=== PATIENT | female | born 1995 | race Caucasian/White ===

== ENCOUNTER → 2019-09-14 | Outpatient (CLI) | payer SELFPAY ==
--- NOTE | 2019-09-14 15:50 | RADIOLOGY REPORT (SQ) ---
EXAM DESCRIPTION: U/S OB 14+ TRNABD 1GES W/O DOP COMPLETED DATE/TIME: 09/14/2019 1:33 pm REASON FOR STUDY: Z34.02 ENCNTR FOR SUPRVSN OF NORMAL FIRST PREG, SECOND TRIMESTER Z34.02 ENCNTR FO R SUPRVSN OF NORMAL FIRST PREG, SECOND TRIME COMPARISON: None. TECHNIQUE: Static and Dynamic grayscale imaging performed of gravid uterus using transabdominal appr oach. Additional selected color Doppler and spectral images recorded. All stored on PACS. LIMITATIONS: None. FINDINGS: FETUSES SEEN:1 EGA: 14 weeks 5 days Calculated using BPD,FL,HC,AC documented on images. Discrepancy with clinical d ates. Exceeds clinical dates by 1 week 2 days. ALPHONSO: 03/18/2020 EFW: Not calculated. Grams PERCENTILE: Not applicable. Fetus less than or equal to 20 weeks gestation. LVP: 6.7 x 4.6 cm. PLACENTA: Fundal GRADE: I PRESENTATION: Variable. ANATOMY: Complete anatomical survey was not performed because of the gestational age. HEART RATE: 149 beats per minute. MATERNAL ADNEXA: Maternal ovaries not visualized. CERVICAL LENGTH: 3.2 cm. Closed. OTHER: No other significant finding. IMPRESSION: LIVING INTRAUTERINE . ESTIMATED GESTATIONAL AGE 14 weeks 5 days Anatomical survey was not performed. Trimester of : Second trimester - 13 weeks 1 day to 27 weeks 6 days. TECHNICAL DOCUMENTATION: JOB ID: [id number] 2010 [employer]- All Rights Reserved Reading location - IP/workstation name: [email or web address]
== END ==
LOC: RAD 12:54
PROVIDERS: ATTEND Nurse Practitioner Family
DX: Z34.02 Encounter for supervision of normal first pregnancy, second trimester (principal)
CPT/HCPCS: 76805

== ENCOUNTER → 2019-10-20 | Outpatient (CLI) | payer SELFPAY ==
--- NOTE | 2019-10-20 14:30 | RADIOLOGY REPORT (SQ) ---
EXAM DESCRIPTION: U/S OB 14+ TRNABD 1GES W/O DOP IMAGES COMPLETED DATE/TIME: 10/20/2019 1:53 pm REASON FOR STUDY: Z34.02 ENCNTR FOR SUPRVSN OF NORMAL FIRST PREG, SECOND TRIMESTER Z34.02 ENCNTR FO R SUPRVSN OF NORMAL FIRST PREG, SECOND TRIME COMPARISON: 09/14/2019 TECHNIQUE: Static and Dynamic grayscale imaging performed of gravid uterus using transabdominal appr oach. Additional selected color Doppler and spectral images recorded. All stored on PACS. LIMITATIONS: None. FINDINGS: FETUSES SEEN:1 EGA: 19 weeks 5 days Calculated using BPD,FL,HC,AC documented on images. No discrepancy with clinica l dates. ALPHONSO: 03/10/2020 EFW: 304 grams PERCENTILE: Not applicable. Fetus less than or equal to 20 weeks gestation. LVP: 6.0 x 9.9 cm PLACENTA: Posterior PRESENTATION: Vertex ANATOMY: HEART RATE: 153 beats per minute. FOUR CHAMBER HEART: Visualized. THREE VESSEL CORD: Yes. CORD INSERTION: Visualized. KIDNEYS AND BLADDER: Visualized. Appear normal. STOMACH: Visualized. Appears normal. SPINE: Normal as visualized. BRAIN AND LATERAL VENTRICLES: Visualized. Appear normal. OTHER: No other significant finding. MATERNAL ADNEXA: Maternal ovaries not visualized. CERVICAL LENGTH: 2.8 cm Closed. OTHER: No other significant finding. IMPRESSION: LIVING INTRAUTERINE . ESTIMATED GESTATIONAL AGE 19 weeks 5 days NO VISUALIZED ANOMALIES. Trimester of : Second trimester - 13 weeks 1 day to 27 weeks 6 days. TECHNICAL DOCUMENTATION: JOB ID: [id number] 2010 [employer]- All Rights Reserved Reading location - IP/workstation name: [email or web address]
== END ==
LOC: RAD 12:46
PROVIDERS: ATTEND Nurse Practitioner Family
DX: Z34.02 Encounter for supervision of normal first pregnancy, second trimester (principal); Z3A.19 19 weeks gestation of pregnancy
CPT/HCPCS: 76805

== ENCOUNTER 2020-03-17 19:46 | Inpatient (IN) | payer MEDICAID ==
[2020-03-17] MEDS ORDERED: RINGERS SOLUTION,LACTATED 1,000 ML IV PRN ×2 (20:21)
[2020-03-17] MEDS ORDERED: RINGERS SOLUTION,LACTATED 1,000 ML IV ONE (20:21)
[2020-03-17] MEDS ORDERED: MAG HYDROX/AL HYDROX/SIMETH SUSP 30 ML UDCUP PO PRN (20:21)
[2020-03-17] MEDS ORDERED: ACETAMINOPHEN 325 MG TABLET PO PRN (20:21)
[2020-03-17] MEDS ORDERED: ZOLPIDEM TARTRATE 5 MG TABLET PO PRN (20:21)
[2020-03-17] MEDS ORDERED: RINGERS SOLUTION,LACTATED 300 ML IV ONE (20:21)
[2020-03-17] MEDS ORDERED: OXYTOCIN/0.9 % SODIUM CHLORIDE 30 UNIT/500 ML RTUINJ IV PRN (20:21)
[2020-03-17] MEDS ORDERED: DINOPROSTONE 10 MG VAGINAL INSERT.SR PV ONE (20:21)
[2020-03-17 20:37] LABS: ABSOLUTE BASOPHILS # (AUTO) 0.1 10^3/uL (0.0-0.2); ABSOLUTE EOSINOPHILS # (AUTO) 0.3 10^3/uL (0.0-0.6); ABSOLUTE LYMPHOCYTES (AUTO) 1.8 10^3/uL (0.5-4.7); ABSOLUTE MONOCYTES (AUTO) 0.9 10^3/uL (0.1-1.4); BASOPHILS % (AUTO) 0.6 % (0-2); EOSINOPHILS % (AUTO) 2.3 % (0-6); HEMATOCRIT 35.8 % (36.0-47.0); HEMOGLOBIN 12.4 g/dL (12.0-15.5); LYMPHOCYTES % (AUTO) 13.9 % (13-45); MEAN CORPUSCULAR HEMOGLOBIN 32.2 pg (27.0-33.4); MEAN CORPUSCULAR HGB CONC 34.6 g/dL (32.0-36.0); MEAN CORPUSCULAR VOLUME 93 fl (80-97); MONOCYTES % (AUTO) 7.2 % (3-13); PLATELET COUNT 215 10^3/uL (150-450); RED BLOOD COUNT 3.84 10^6/uL (3.72-5.28); RED CELL DISTRIBUTION WIDTH 13.4 % (11.5-14.0); TOTAL CELLS COUNTED % (AUTO) 100 %; WHITE BLOOD COUNT 13.1 10^3/uL (4.0-10.5)
--- NOTE | 2020-03-17 20:42 | Admission Physical ---
Datetime Report Generated by CPN: 03/17/2020 20:42 CURRENT ADMISSION Chief Complaint: Scheduled Induction of Labor Indication for Induction: Post Dates Admit Impression : Term, Intrauterine Admit Plan: Admit to Unit PHYSICAL EXAM General: Normal HEENT: Normal Neurologic: Normal Thyroid: Normal Heart: Normal Lungs: Normal Breast: Deferred Back: Normal Abdomen: Normal Genitourinary Exam: Normal Extremities: Normal DTRs: Normal Pelvic Type: Adequate FETUS A Monitoring: External US FHR- Baseline: 120 Variability: Moderate 6-25bpm Decelerations: None FHR Category: Category I Estimated Weight (gm): 4441 Presentation: Vertex Admit Comment: Discussed risks of delivering a large baby including risk of shoulder dystocia and injury. INFORMED CONSENT Signature: with User ID: [email or web address]
[2020-03-17 20:56] LABS: URINE AMPHETAMINES SCREEN NEGATIVE; URINE BARBITURATES SCREEN NEGATIVE; URINE BENZODIAZEPINES SCREEN NEGATIVE; URINE COCAINE SCREEN NEGATIVE; URINE METHADONE SCREEN NEGATIVE; URINE PHENCYCLIDINE SCREEN NEGATIVE
[2020-03-17 20:59] LABS: URINE MARIJUANA (THC) SCREEN UNCONFIRMED POSITIVE
[2020-03-17] MEDS ORDERED: MISOPROSTOL 0.2 MG TABLET ONE (21:11)
[2020-03-17] MEDS ORDERED: OXYTOCIN 10 UNIT/ML VIAL ONE (21:11)
[2020-03-17] MEDS ORDERED: ZOLPIDEM TARTRATE 5 MG TABLET ONE (21:12)
[2020-03-17] MEDS ORDERED: OXYTOCIN/0.9 % SODIUM CHLORIDE 30 UNIT/500 ML RTUINJ ONE (21:12)
[2020-03-17] MEDS ORDERED: LIDOCAINE 1% INJ-PF (10 MG/ML) 30 ML SDV ONE (21:12)
[2020-03-17] MEDS ORDERED: DINOPROSTONE 10 MG VAGINAL INSERT.SR ONE (21:12)
[2020-03-17] MEDS ORDERED: ZOLPIDEM TARTRATE 5 MG TABLET PO ONE (21:16)
[2020-03-18] MEDS ORDERED: NALBUPHINE HCL INJ 10 MG/1 ML AMPULE INJ ONE (08:10)
[2020-03-18] MEDS ORDERED: NALBUPHINE HCL INJ 10 MG/1 ML AMPULE ONE (08:10)
[2020-03-18] MEDS ORDERED: PROMETHAZINE HCL INJ 25 MG/1 ML VIAL IV ONE (08:10)
[2020-03-18] MEDS ORDERED: PROMETHAZINE HCL INJ 25 MG/1 ML VIAL ONE (08:10)
--- NOTE | 2020-03-18 08:24 | L&D Progress Notes ---
PROGRESS NOTES Datetime Report Generated by CPN: 03/18/2020 08:24 PROGRESS NOTE Impression: Reassuring Heart Rate Plan: Continue Present Management; Induction Vital Signs : Reviewed Comment: Assuming care of pt. IOL at 41.2 weeks w/ cervidil placed last night, pt becoming uncomfortable, will give IV pain medication this am. Cervidil to be removed at 0900, then plan AROM with cervical change and plan to start Pitocin to continue w/ IOL. Attending MD today is Dr Mendoza. MEMBRANES Membranes: Intact FETUS A FHR - Baseline: 140 Monitoring: External US Variability: Moderate 6-25bpm Accelerations: 15X15 Decelerations: None FHR Category: Category I : 41.0 Estimated Weight (gm): 4441 Presentation: Vertex SIGNATURE SIGNATURE: [id number];[id number] Assignment: Meri Mendoza MD Signature: with User ID: [email or web address] : with User ID: [email or web address]
[2020-03-18] MEDS ORDERED: FENTANYL/BUPIVACAINE/NS/PF 300 MCG/150 ML RTUINJ EPI ONE (09:48)
[2020-03-18] MEDS ORDERED: ROPIVACAINE HCL 0.2% INJ/PF (2 MG/ML) 20 ML SDV ONE (09:48)
[2020-03-18] MEDS ORDERED: EPHEDRINE SULFATE INJ 50 MG/1 ML AMPULE ONE (09:48)
[2020-03-18] MEDS ORDERED: ONDANSETRON HCL INJ/PF 4 MG/2 ML SDV IV ONE (10:05)
[2020-03-18] MEDS ORDERED: ONDANSETRON HCL INJ/PF 4 MG/2 ML SDV ONE (10:05)
--- NOTE | 2020-03-18 11:22 | L&D Progress Notes ---
PROGRESS NOTES Datetime Report Generated by CPN: 03/18/2020 11:22 PROGRESS NOTE Impression: Reassuring Heart Rate Procedures: Sterile Vag Exam Plan: Continue Present Management; Induction Vital Signs : Reviewed; Within Normal Limits Comment: Epidural in place, pt is comfortable, pitocin has not been started due to contractions q 1-2 min. VE 4/80/-1 w/ BBOW. By request of RN, she wants to try position changes in attempt to get baby to rotate from OP. Will plan to AROM in one hour after position changes. LAST VAGINAL EXAM-NURSING Nursing Exam Dilitation: 4.0 Nursing Exam Effacement: 80 Nursing Exam Station: -1 MEMBRANES Membranes: Bulging FETUS A FHR - Baseline: 145 Monitoring: External US Variability: Marked >25bpm Accelerations: 15X15 Decelerations: None FHR Category: Category I : 41.0 Estimated Weight (gm): 4441 Presentation: Vertex SIGNATURE SIGNATURE: [id number];[id number] Assignment: Meri Mendoza MD Signature: with User ID: [email or web address] : with User ID: [email or web address]
[2020-03-18] MEDS ORDERED: MAG HYDROX/AL HYDROX/SIMETH SUSP 30 ML UDCUP PO PRN (15:27)
[2020-03-18] MEDS ORDERED: MAG HYDROX/AL HYDROX/SIMETH SUSP 30 ML UDCUP ONE (15:31)
--- NOTE | 2020-03-18 15:34 | L&D Progress Notes ---
PROGRESS NOTES Datetime Report Generated by CPN: 03/18/2020 15:33 PROGRESS NOTE Impression: Normal Progression of Labor; Reassuring Heart Rate Procedures: Sterile Vag Exam Plan: Continue Present Management; Induction Vital Signs : Reviewed; Within Normal Limits Comment: Epidural in place, pt is now uncomfortable. VE 8/100/0. Pitocin infusing. Position changes encouraged. Anticipate LAST VAGINAL EXAM-NURSING Nursing Exam Dilitation: 8.0 Nursing Exam Effacement: 100 Nursing Exam Station: 0 MEMBRANES Membranes: Ruptured Amniotic Fluid Color: Meconium, Heavy FETUS A FHR - Baseline: 135 Monitoring: External US Variability: Moderate 6-25bpm Accelerations: 15X15 Decelerations: None FHR Category: Category I : 41.0 Estimated Weight (gm): 4441 Presentation: Vertex SIGNATURE SIGNATURE: [id number];[id number] Assignment: Meri Mendoza MD Signature: with User ID: [email or web address] : with User ID: [email or web address]
--- NOTE | 2020-03-18 17:31 | L&D Progress Notes ---
PROGRESS NOTES Datetime Report Generated by CPN: 03/18/2020 17:31 PROGRESS NOTE Impression: Normal Progression of Labor Procedures: Sterile Vag Exam Plan: Anticipate Vaginal Delivery Vital Signs : Reviewed; Within Normal Limits Comment: Pt w/ increased pain/ pressure. VE C/+2 station. Will have RN start pushing w/ patient. Dr Mendoza notified. Anticipate LAST VAGINAL EXAM-NURSING Nursing Exam Dilitation: 8.0 Nursing Exam Effacement: 100 Nursing Exam Station: 0 MEMBRANES Membranes: Ruptured Amniotic Fluid Color: Meconium, Heavy FETUS A FHR - Baseline: 140 Monitoring: External US Variability: Moderate 6-25bpm Accelerations: 15X15 Decelerations: None FHR Category: Category I : 41.0 Estimated Weight (gm): 4441 Presentation: Vertex SIGNATURE SIGNATURE: [id number];10,[id number] Assignment: Meri Mendoza MD Signature: with User ID: [email or web address] : with User ID: [email or web address]
[2020-03-18] MEDS ORDERED: PROMETHAZINE HCL INJ 25 MG/1 ML VIAL IV PRN (18:13)
[2020-03-18] MEDS ORDERED: DIBUCAINE 1% OINTMENT 28 GM TP PRN (18:13)
[2020-03-18] MEDS ORDERED: NA PHOS,M-B/NA PHOS,DI-BA (ADULT) 133 ML ENEMA PR PRN (18:13)
[2020-03-18] MEDS ORDERED: OXYTOCIN/0.9 % SODIUM CHLORIDE 30 UNIT/500 ML RTUINJ IV PRN (18:13)
[2020-03-18] MEDS ORDERED: DIPH/PERTUSS(ACELL)/TETANUS VAC/PF 0.5 ML SYR (>=10YO) IM PRN (18:13)
[2020-03-18] MEDS ORDERED: PROMETHAZINE HCL 25 MG SUPP.RECT PR PRN (18:13)
[2020-03-18] MEDS ORDERED: PROMETHAZINE HCL 25 MG TABLET PO PRN (18:13)
[2020-03-18] MEDS ORDERED: DIPHENHYDRAMINE HCL 25 MG CAPSULE PO PRN (18:13)
[2020-03-18] MEDS ORDERED: ACETAMINOPHEN 650 MG SUPP.RECT PR PRN (18:13)
[2020-03-18] MEDS ORDERED: GLYCERIN/WITCH HAZEL LEAF 1 EACH MED..WIPE TP PRN (18:13)
[2020-03-18] MEDS ORDERED: MAGNESIUM HYDROXIDE SUSP 30 ML UDCUP PO PRN (18:13)
[2020-03-18] MEDS ORDERED: MEASLES,MUMPS&RUBELLA VACC/PF 0.5 ML VIAL SUBCUT PRN (18:13)
[2020-03-18] MEDS ORDERED: ZOLPIDEM TARTRATE 5 MG TABLET PO PRN (18:13)
[2020-03-18] MEDS ORDERED: BENZOCAINE/MENTHOL AEROSOL SPRAY 56 ML TOP PRN (18:13)
[2020-03-18] MEDS ORDERED: ACETAMINOPHEN WITH CODEINE #3 TABLET PO PRN ×2 (18:13)
[2020-03-18] MEDS ORDERED: PSEUDOEPHEDRINE HCL 30 MG TABLET PO PRN (18:13)
[2020-03-18] MEDS ORDERED: IBUPROFEN 800 MG TABLET ONE (19:41)
--- NOTE | 2020-03-18 20:13 | Delivery Summary ---
Del Sum A-C Datetime Report Generated by CPN: 03/18/2020 20:13 DELIVERY PERSONNEL DELIVERY PERSONNEL: [id number] Delivery Doctor:: Meri Mendoza MD Labor and Delivery Nurse:: Leighann Pfeiffer RNceramic coater Nurse:: MARTHA Aldridge Management Tech/SR. MANAGER CORPORATE COMMUNICATIONS: Aggie He, CHANNELING MACHINE RUNNER Management Tech/SR. MANAGER CORPORATE COMMUNICATIONS: Eliza Siddiqi, CHANNELING MACHINE RUNNER MATERNAL INFORMATION Delivery Anesthesia: Epidural Medications After Delivery: Pitocin Bolus-Please Comment; Pitocin 30 Units in 500ml NS/D5W Meds After Delivery Comment: 200mLs open bolus, then remainder @ 95mLs/hr Estimated Blood Loss (ml): 200 Delivery QBL: 200 Maternal Complications: None LABOR SUMMARY EDC: 03/09/2020 00:00 No. Babies in Womb: 1 Labor Anesthesia: Epidural LABOR INFORMATION Reason for Induction: Post Dates Onset of Labor: 03/18/2020 12:09 Complete Dilatation: 03/18/2020 17:13 Cervical Ripening Agents: Cervidil Oxytocin: Induction Group B Beta Strep: Negative Antibiotics # of Doses: 0 Steroids Given: None Reason Steroids Not Administered: Not Applicable MEMBRANES Membranes Rupture Method: Spontaneous Rupture of Membranes: 03/18/2020 12:09 Length of Rupture (hr): 5.83 Amniotic Fluid Color: Moderate Meconium Amniotic Fluid Amount: Moderate Amniotic Fluid Odor: None STAGES OF LABOR Stage 1 hr: 5 Stage 1 min: 4 Stage 2 hr: 0 Stage 2 min: 46 Stage 3 hr: 0 Stage 3 min: 3 Total Time in Labor hr: 5 Total Time in Labor min: 53 VAGINAL DELIVERY Episiotomy: None Laceration #1: Vaginal Laceration Extension #1: First Degree Laceration Repair: Yes Laceration Repair Note: 2-0 chromic repair Sponge Count Correct: N/A CSECTION DELIVERY Primary Indication: N/A CSection Incidence: N/A Labor: N/A Elective: N/A CSection Incision: N/A BABY A INFORMATION Infant Delivery Date/Time: 03/18/2020 17:59 Method of Delivery: Vaginal Nurse Controlled Delivery: No Born in Route : No : N/A Forceps: N/A Vacuum Extraction: N/A Shoulder Dystocia : Yes SHOULDER DYSTOCIA BABY A Delivery of Head: 03/18/2020 17:58 Time Head to Delivery : 1.0 1st Intervention to Resolve: Gentle Attempt at Traction, Assisted by Maternal Expulsive Efforts 2nd Intervention to Resolve: McRobert's Maneuver 3rd Intervention to Resolve: Suprapubic Pressure Verify NO Fundal Pressure: No Fundal Pressure Applied Arm Under Symphisis at Del: Left Shoulder Dystocia Comments: 1 minute 54 seconds PRESENTATION/POSITION BABY A Presentation: Cephalic Cephalic Presentation: Vertex Vertex Position: Right Occipital Anterior Breech Presentation: N/A PLACENTA INFORMATION BABY A Placenta Delivery Time : 03/18/2020 18:02 Placenta Method of Delivery: Spontaneous Placenta Status: Delivered SCORES BABY A Heart Rate 1 min: >100 bpm Resp Effort 1 min: Good Cry Reflex Irritability 1 min: Cough or Sneeze or Pulls Away Muscle Tone 1 min: Active Motion Color 1 min: Blue/Pale Resuscitation Effort 1 min: Tactile Stimulation SCORE 1 MIN: 8 Heart Rate 5 min: >100 bpm Resp Effort 5 min: Good Cry Reflex Irritability 5 min: Cough or Sneeze or Pulls Away Muscle Tone 5 min: Active Motion Color 5 min: Body [place], Extremities Blue SCORE 5 MIN: 9 INFORMATION BABY A Gestational Age at Delivery: 41.2 Gestational Status: Late Term- 41- 41.6 Weeks Infant Outcome : Liveborn Infant Condition : Stable Infant Sex: Female IDENTIFICATION BABY A Verification Date/Time: 03/18/2020 19:11 ID Band Number: [id number] Mother's Name Verified: Yes RN Verifying Infant: Willie Vicente RN Additional Verifying Personnel: Didi Pfeiffer RN WEIGHT/LENGTH BABY A Infant Birthweight (gm): 4049 Weight (lb): 8 Weight (oz): 15 Length (in): 20.00 Length (cm): 50.80 CORD INFORMATION BABY A No. Cord Vessels: 3 Nuchal Cord : N/A Cord Blood Taken: Yes-For Storage (Mom's Blood type +) Suction: Mouth; Nose ASSESSMENT BABY A Skin to Skin: Yes Skin to Skin Time (min): 60 BABY B INFORMATION : N/A SIGNATURES Signature: with User ID: [email or web address]
--- NOTE | 2020-03-18 20:13 | Birth Certificate Data ---
Cert Data Datetime Report Generated by RAULITO: 03/18/2020 20:13 CERTIFICATE DATA 47a. Care: Yes (03/17/2020 20:48:Josette Vicente RN) 47b. Date of First Visit: 09/06/2019 00:00 (03/17/2020 20:48:Josette Vicente RN) 47c. Date of Last Visit: 03/12/2020 00:00 (03/17/2020 20:48:Josette Vicente RN) 47d. Number of Visits: 11 (03/17/2020 20:48:Josette Vicente RN) 48a. Number of Prev Live Births: 0 (03/17/2020 20:48:Kitty Espinoza RN) 48b. Now Livin (03/17/2020 20:48:Kitty Espinoza RN) 48c. Live Births Now : 0 (03/17/2020 20:48:QS system process) 48e. Losses: 0 (03/17/2020 20:48:Kitty Espinoza RN) RISK FACTORS IN THIS 49a. Diabetes: No (03/17/2020 20:48:Josette Vicente RN) 49b. Hypertension: No (03/17/2020 20:48:Josette Vicente RN) 49c. Previous Births: 0 (03/17/2020 20:48:Kitty Espinoza RN) 49d. Stillborns: No (03/17/2020 20:48:Josette Vicente RN) 49d. IUGR: No (03/17/2020 20:48:Josette Vicente RN) 49e. Infertility Treatment: No (03/17/2020 20:48:Josette Vicente RN) 49f. Previous Cesareans: 0 (03/17/2020 20:48:Kitty Espinoza RN) Mother's Height 50b. Height Inches: 66 (03/17/2020 21:19:QS system process) Mother's Weight 51a. Pre- Weight (lbs): 158 (03/17/2020 20:48:Josette Vicente RN) 51b. Weight at Delivery (lbs): 196 (03/17/2020 21:19:QS system process) Infections Present/Treated 53a. Gonorrhea: No (03/17/2020 20:48:Josette Vicente RN) Results this Hospital Visit : Negative (03/17/2020 20:48:Josette Vicente RN) 53b. Syphilis: No (03/17/2020 20:48:Josette Vicente RN) Results this Hospital Visit: NONREACTIVE (03/17/2020 20:20:QS system process) 53c. Chlamydia: No (03/17/2020 20:48:Josette Vicente RN) Results this Hospital Visit: Negative (03/17/2020 20:48:Josette Vicente RN) 53d. Hepatitis B: No (03/17/2020 20:48:Josette Vicente RN) Results this Hospital Visit: Negative (03/17/2020 20:48:Josette Vicente RN) 53e. Hepatitis C: Negative (03/17/2020 20:48:Josette Vicente RN) 53h. Mother Tested for HBsAG: Yes (03/17/2020 20:48:Josette Vicente RN) 53i. Date Tested: 10/04/2019 00:00 (03/17/2020 20:48:Josette Vicente RN) 53j. Test Result: Negative (03/17/2020 20:48:Josette Vicente RN) Obstetric Procedures 54a, b, c. Obstetric Procedures: Ultrasound (03/17/2020 20:48:Josette Vicente RN) Cigarette Smoking 55a. Packs: 07/20 (03/17/2020 20:48:Josette Vicente RN) 55b. Packs: 07/20 (03/17/2020 20:48:Josette Vicente RN) 55c. Packs: 07/20 (03/17/2020 20:48:Josette Vicente RN) 55d. Packs: 07/20 (03/17/2020 20:48:Josette Vicente RN) Onset of Labor 56a. PROM >12 Hrs: 5.83 (03/17/2020 20:48:QS system process) 56b. Precipitous Labor <3 Hrs: 5 (03/17/2020 20:48:QS system process) 56c. Prolonged Labor > 20 Hrs: 5 (03/17/2020 20:48:QS system process) 57a. Induction of Labor: Induction (03/17/2020 20:48:Meri Mendoza MD (AND)) 57a. Induction of Labor: Cervidil (03/17/2020 22:00:Josette Vicente RN) 57c. Non-Vertex Presentation A: Vertex (03/17/2020 20:48:MARTHA Aldridge) 57d. Steroids - Lung Mat: None (03/17/2020 20:48:Leighann Pfeiffer RN) 57d. Steroids - Lung Mat: Not Applicable (03/17/2020 20:48:Leighann Pfeiffer RN) 57f. Mat [place] or Temp >100.4: 98.3 (03/17/2020 20:48:Leighann Pfeiffer RN) 57g. Moderate/Heavy Meconium: Moderate Meconium (03/18/2020 12:09:Leighann Pfeiffer RN) 57h. Intolerance of Labor: N/A (03/17/2020 20:48:Leighann Pfefifer RN) 57i. Epidural/Spinal Anesthesia: Epidural (03/17/2020 20:48:Leighann Pfeiffer RN) Method of Delivery 58a. Forceps - Unsuccessful A: N/A (03/17/2020 20:48:Shari Gee [facility]) 58b. Vacuum - Unsuccessful A: N/A (03/17/2020 20:48:Shari Gee [facility]) 58c. Presentation at 58c. Presentation at - A : Vertex (03/17/2020 20:48:Shari Gee [facility]) 58c. Presentation at - A : N/A (03/17/2020 20:48:Shari Gee [facility]) 58c. Presentation at - A : Cephalic (03/17/2020 20:48:Shari Camp, [facility]) Final Route and Method of Del 58d. Baby A Route/Delivery: Vaginal (03/18/2020 17:59:Leighann Pfeiffer RN) 58e. Trial of Labor Attempted A: N/A (03/17/2020 20:48:Shari Gee, [facility]) 58e. Trial of Labor Attempted B: N/A (03/17/2020 20:48:Leighann Pfeiffer RN) Maternal Morbidity 59b. 3rd or 4th Degree Lacs: Vaginal (03/17/2020 20:48:[facility] Birthweight Baby A: 4049 (03/17/2020 20:48:Josette Vicente RN) 60a. Pounds : 8 (03/17/2020 20:48:QS system process) 60b. Ounces: 15 (03/17/2020 20:48:QS system process) 61. GA at Delivery Baby A: 41.2 (03/17/2020 20:48:Shari Gee, [facility]) : Late Term- 41- 41.6 Weeks (03/17/2020 20:48:QS system process) 62a. 5 Minute Baby A: 9 (03/17/2020 20:48:QS system process)
[2020-03-18] MEDS ORDERED: IBUPROFEN 800 MG TABLET PO SCH (22:00)
[2020-03-18] MEDS: FAMOTIDINE 20 MG TABLET PO SCH (22:19)
[2020-03-19] MEDS: IBUPROFEN 800 MG TABLET PO SCH ×3 (01:52→18:38)
[2020-03-19 07:57] LABS: HEMATOCRIT 35.1 % (36.0-47.0); HEMOGLOBIN 12.3 g/dL (12.0-15.5); MEAN CORPUSCULAR HEMOGLOBIN 32.3 pg (27.0-33.4); MEAN CORPUSCULAR HGB CONC 34.9 g/dL (32.0-36.0); MEAN CORPUSCULAR VOLUME 93 fl (80-97); PLATELET COUNT 184 10^3/uL (150-450); RED CELL DISTRIBUTION WIDTH 13.5 % (11.5-14.0); WHITE BLOOD COUNT 15.3 10^3/uL (4.0-10.5)
[2020-03-19] MEDS: PRENATAL VITAMIN W DHA CAPSULE PO SCH (09:40)
[2020-03-19] MEDS: SENNOSIDES/DOCUSATE 8.6-50 MG 1 EACH TABLET PO SCH (09:41)
[2020-03-19] MEDS: DOCUSATE SODIUM 100 MG CAPSULE PO SCH ×2 (09:41→18:38)
[2020-03-19] MEDS: FERROUS SULFATE 325 MG TABLET PO SCH ×2 (09:41→18:38)
[2020-03-19] MEDS: FAMOTIDINE 20 MG TABLET PO SCH ×2 (09:41→21:53)
--- NOTE | 2020-03-19 10:06 | PDOC PROGRESS REPORT ---
Subjective-OB Progress Note for:: 03/19/20 Subjective: sister in room with pt, walking around, no c/o scant bleeding Physical Exam (OB) Vital Signs: Temp Pulse Resp BP Pulse Ox 97.5 F 79 16 122/68 100 03/19/20 07:53 03/19/20 07:53 03/19/20 07:53 03/19/20 07:53 03/19/20 07:53 Intake & Output 03/18/20 03/19/20 03/20/20 06:59 06:59 06:59 Output Total 525 Balance -525 Weight 89.4 kg - PIH/Pre-Eclampsia Headache: Absent Epigastric Pain: No Visual Changes: No - Maternal Morbidity 59. Maternal Morbidity (serious complications experinced by the mother associated with labor and delivery: None of the above - Lochia Lochia Amount: Scant < 10 ml Lochia Color: Rubra/Red - Abdomen Description: Soft Hernia Present: No Fundal Description: Firm, Midline Fundal Height: u/u - u/2 Objective-Diagnostic Laboratory: 03/19/20 07:30 03/19/20 07:30 WBC 15.3 H RBC 3.80 Hgb 12.3 Hct 35.1 L MCV 93 MCH 32.3 MCHC 34.9 RDW 13.5 Plt Count 184 Assessment and Plan(PN) - Assessment and Plan (1) Marijuana abuse Is this a current diagnosis for this admission?: Yes (2) Asthma Qualifiers: Asthma complication type: unspecified Is this a current diagnosis for this admission?: Yes (3) Depression Qualifiers: Trimester: unspecified trimester Is this a current diagnosis for this admission?: Yes (4) Anxiety Is this a current diagnosis for this admission?: Yes (5) Vaginal delivery Is this a current diagnosis for this admission?: Yes - Time Spent with Patient Time with patient: Less than 15 minutes Medications reviewed and adjusted accordingly: Yes - Disposition Anticipated Discharge Disposition: Home, Self Care Anticipated Discharge Timeframe: within 24 hours
[2020-03-20] MEDS: IBUPROFEN 800 MG TABLET PO SCH ×2 (01:51→09:14)
[2020-03-20 08:49] VITALS: BP 115/53
[2020-03-20] MEDS: PRENATAL VITAMIN W DHA CAPSULE PO SCH (09:14)
[2020-03-20] MEDS: FERROUS SULFATE 325 MG TABLET PO SCH (09:14)
[2020-03-20] MEDS: FAMOTIDINE 20 MG TABLET PO SCH (09:14)
[2020-03-20] MEDS: SENNOSIDES/DOCUSATE 8.6-50 MG 1 EACH TABLET PO SCH (09:14)
[2020-03-20] MEDS: DOCUSATE SODIUM 100 MG CAPSULE PO SCH (09:14)
--- NOTE | 2020-03-20 11:56 | PDOC DISCHARGE SUMMARY ---
Impression - Admit/DC Date/PCP Admission Date/Primary Care Provider: 03/17/20 19:46 MAURISIO BARRON MD Discharge Date: 03/20/20 - Discharge Diagnosis (1) Anxiety Is this a current diagnosis for this admission?: Yes (2) Asthma Is this a current diagnosis for this admission?: Yes (3) Depression Is this a current diagnosis for this admission?: Yes (4) Marijuana abuse Is this a current diagnosis for this admission?: Yes (5) Obstetric vaginal laceration Is this a current diagnosis for this admission?: Yes (6) Shoulder dystocia during labor and delivery, delivered Is this a current diagnosis for this admission?: Yes (7) Vaginal delivery Is this a current diagnosis for this admission?: Yes - Assessment Summary: 24yo G1 now P1 s/p ppd 2 stable and ready for discharge understands all warning s/s and when to rtc/[facility] - Additional Information Resuscitation Status: Full Code Discharge Diet: As Tolerated, Regular Discharge Activity: Activity As Tolerated, Balance Activity w/Rest, Pelvic Rest, No tub bath, Walk Frequently Referrals: MAURISIO BARRON MD [Primary Care Provider] - Prescriptions: Ibuprofen [Motrin 800 mg Tablet] 800 mg PO Q8HP PRN #20 tablet PRN Reason: For Pain Scale 1-3 Home Medications: Tte443/Iron Fum/Folic/Docusate [ 19 Tablet] 1 each PO DAILY 03/17/20 Ibuprofen [Motrin 800 mg Tablet] 800 mg PO Q8HP PRN #20 tablet 03/20/20 Hospital Course 59. Maternal Morbidity (serious complications experinced by the mother associated with labor and delivery: None of the above Results Laboratory Results: WBC 15.3 10^3/uL (4.0-10.5) H 03/19/20 07:30 RBC 3.80 10^6/uL (3.72-5.28) 03/19/20 07:30 Hgb 12.3 g/dL (12.0-15.5) 03/19/20 07:30 Hct 35.1 % (36.0-47.0) L 03/19/20 07:30 MCV 93 fl (80-97) 03/19/20 07:30 MCH 32.3 pg (27.0-33.4) 03/19/20 07:30 MCHC 34.9 g/dL (32.0-36.0) 03/19/20 07:30 RDW 13.5 % (11.5-14.0) 03/19/20 07:30 Plt Count 184 10^3/uL (150-450) 03/19/20 07:30 Lymph % (Auto) 13.9 % (13-45) 03/17/20 20:20 [place] % (Auto) 7.2 % (3-13) 03/17/20 20:20 Eos % (Auto) 2.3 % (0-6) 03/17/20 20:20 Baso % (Auto) 0.6 % (0-2) 03/17/20 20:20 Absolute Neuts (auto) 10.0 10^3/uL (1.7-8.2) H 03/17/20 20:20 Absolute Lymphs (auto) 1.8 10^3/uL (0.5-4.7) 03/17/20 20:20 Absolute Monos (auto) 0.9 10^3/uL (0.1-1.4) 03/17/20 20:20 Absolute Eos (auto) 0.3 10^3/uL (0.0-0.6) 03/17/20 20:20 Absolute Basos (auto) 0.1 10^3/uL (0.0-0.2) 03/17/20 20:20 Seg Neutrophils % 76.0 % (42-78) 03/17/20 20:20 Urine Opiates Screen NEGATIVE 03/17/20 19:55 Urine Methadone Screen NEGATIVE 03/17/20 19:55 Ur Barbiturates Screen NEGATIVE 03/17/20 19:55 Ur Phencyclidine Scrn NEGATIVE 03/17/20 19:55 Ur Amphetamines Screen NEGATIVE 03/17/20 19:55 U Benzodiazepines Scrn NEGATIVE 03/17/20 19:55 Urine Cocaine Screen NEGATIVE 03/17/20 19:55 U Marijuana (THC) Screen UNCONFIRMED POSITIVE 03/17/20 19:55 RPR NONREACTIVE (NONREACTIVE) 03/17/20 20:20 Blood Type A POSITIVE 03/17/20 20:20 Antibody Screen NEGATIVE 03/17/20 20:20
== END 2020-03-20 15:18 | disposition home or self-care (01) | DRG 806 ==
LOC: LR 19:46 → 2S 03-18 20:55
PROVIDERS: ADMIT Obstetrics & Gynecology; ATTEND Obstetrics & Gynecology
PROC: 10E0XZZ Delivery of Products of Conception, External Approach (ICD-10-PCS; principal; 2020-03-18)
PROC: 0HQ9XZZ Repair Perineum Skin, External Approach (ICD-10-PCS; 2020-03-18)
DX: O48.0 Post-term pregnancy (principal); O99.324 Drug use complicating childbirth; Z37.0 Single live birth; O99.344 Other mental disorders complicating childbirth; F41.9 Anxiety disorder, unspecified; F32.9 Major depressive disorder, single episode, unspecified; F12.10 Cannabis abuse, uncomplicated; O66.0 Obstructed labor due to shoulder dystocia; O70.0 First degree perineal laceration during delivery; O77.0 Labor and delivery complicated by meconium in amniotic fluid; Z11.59 Encounter for screening for other viral diseases; Z3A.41 41 weeks gestation of pregnancy
CPT/HCPCS: 1967; 36415; 80307; 80349; 85025; 85027; 86592; 86850; 86900; 86901; G0480; J2300; J2405; J2550; J2590; J2795; J3010; J3490